=== PATIENT | female | born 1985 | race Two or more races ===

== ENCOUNTER 2023-08-06 13:30 | Inpatient (IN) | payer OTHER ==
[~2023-08-06] VITALS: Ht 162.6 cm; Wt 78.9 kg
[2023-08-24] MEDS ORDERED: RINGERS SOLUTION,LACTATED 1,000 ML IV SCH (20:00)
[2023-08-24 20:19] LABS: HEMATOCRIT 37.2 % (36.0-45.00); HEMOGLOBIN 12.5 g/dL (12.0-15.00); MEAN CELL VOLUME 89.2 fL (80.00-100.00); MEAN CORPUSCULAR HEMOGLOBIN 29.9 pg (27.00-32.0); MEAN CORPUSCULAR HGB CONC 33.6 g/dl (32.0-36.0); RED BLOOD COUNT 4.17 M/uL (4.00-6.00); RED CELL DISTRIBUTION WIDTH 13.9 % (11.5-14.5)
[2023-08-24 20:21] LABS: PLATELET COUNT 81 K/uL (150-450)
[2023-08-24 20:33] LABS: INR < 0.93; PARTIAL THROMBOPLASTIN TIME 24.8 SECONDS (22.0-34.0); PROTHROMBIN TIME 9.3 SECONDS (9.0-11.5)
[2023-08-24 20:38] LABS: ALBUMIN 2.7 gm/dL (3.4-5.0); BILIRUBIN TOTAL 0.27 mg/dL (0.3-1.2); CALCIUM 8.6 mg/dL (8.5-10.1); CREATININE SERUM 0.61 mg/dL (0.55-1.02); GFR 110.98; GLOBULINA 3.2 G/DL (2.4-3.5); POTASSIUM 3.83 mEq/L (3.5-5.1); TOTAL PROTEIN 5.9 gm/dL (6.4-8.2)
[2023-08-25] MEDS ORDERED: MORPHINE SULFATE 4 MG/ML VIAL IV ONE (02:15)
[2023-08-25] MEDS ORDERED: CHLORHEXIDINE GLUCONATE 120 ML BOTTLE TOP ONE (04:09)
[2023-08-25] MEDS ORDERED: OxyCODONE HCL/APAP UD (PERCOCET) PO PRN (05:00)
[2023-08-25] MEDS ORDERED: OXYTOCIN 20 UNITS/500ML RL PIGGYBAG IV SCH (05:00)
[2023-08-25] MEDS ORDERED: ERYTHROMYCIN BASE 1 GM TUBE OP SCH (05:00)
[2023-08-25] MEDS ORDERED: CHLORHEXIDINE GLUCONATE 120 ML BOTTLE TOP SCH (05:00)
[2023-08-25] MEDS ORDERED: LIDOCAINE HCL 1% 200MG/20ML VIAL IJ SCH (05:00)
[2023-08-25] MEDS ORDERED: KETOROLAC TROMETHAMINE 10 MG TABLET PO SCH (06:00)
[2023-08-25 06:18] LABS: ABG PH 7.332 (7.35-7.45); ABG pCO2 38.7 mmHg (35-45); BASE EXCESS -5.3 mmol/l; BICARBONATE 20.1 mmol/l (23-25); SaO2 55.2 %; Tco2 21.3 mmol/l
[2023-08-25 06:19] LABS: o2 21 %
[2023-08-25] MEDS ORDERED: PNV,CALCIUM 72/IRON/FOLIC ACID 1 TAB TABLET PO SCH (09:00)
[2023-08-25] MEDS ORDERED: DOCUSATE SODIUM 100MG CAP PO SCH (09:00)
== END 2023-08-27 10:57 | disposition home or self-care (01) | DRG 807 ==
LOC: OB/GYN 08-22 13:30 → LDR 08-24 19:24 → OB/GYN 08-25 08:57
PROVIDERS: ADMIT Obstetrics & Gynecology Maternal & Fetal Medicine; ATTEND Obstetrics & Gynecology Maternal & Fetal Medicine
PROC: 4A1HXCZ Monitoring of Products of Conception, Cardiac Rate, External Approach (ICD-10-PCS; 2023-08-24)
PROC: 10E0XZZ Delivery of Products of Conception, External Approach (ICD-10-PCS; principal; 2023-08-25)
PROC: 0KQM0ZZ Repair Perineum Muscle, Open Approach (ICD-10-PCS; 2023-08-25)
PROC: 0W8NXZZ Division of Female Perineum, External Approach (ICD-10-PCS; 2023-08-25)
DX: O70.1 Second degree perineal laceration during delivery (principal); Z37.0 Single live birth; Z3A.40 40 weeks gestation of pregnancy; Z20.822 Contact with and (suspected) exposure to COVID-19

== ENCOUNTER 2023-08-16 11:56 | Outpatient (CLI) | payer OTHER | END 2023-08-16 12:45 | disposition home or self-care (01) | LOC: NST 11:56 | PROVIDERS: ATTEND Obstetrics & Gynecology | DX: Z34.83 Encounter for supervision of other normal pregnancy, third trimester (principal) ==

== ENCOUNTER 2023-08-21 16:37 | Outpatient (CLI) | payer OTHER | END 2023-08-21 18:02 | disposition home or self-care (01) | LOC: NST 16:37 | PROVIDERS: ATTEND Obstetrics & Gynecology Maternal & Fetal Medicine | DX: Z34.83 Encounter for supervision of other normal pregnancy, third trimester (principal) ==

== ENCOUNTER 2023-08-24 11:54 | Outpatient (CLI) | payer OTHER | END 2023-08-24 13:16 | disposition home or self-care (01) | LOC: NST 11:54 | PROVIDERS: ATTEND Obstetrics & Gynecology Maternal & Fetal Medicine | DX: Z34.83 Encounter for supervision of other normal pregnancy, third trimester (principal) ==